=== PATIENT | female | born 1990 | race Caucasian/White ===

== ENCOUNTER 2019-03-20 19:39 | Emergency (ER) | payer OTHER, SELFPAY ==
[2019-03-20 19:42] VITALS: BP 127/74; PULSE 93; RESP 15; TEMP 37.2; O2SAT 100; BMI 23.1
--- NOTE | 2019-03-20 19:50 | CT_ITS ---
STUDY: CT ABDOMEN AND PELVIS WITH CONTRAST REASON FOR EXAM: Female, 28 years old. Pain. Nausea. RADIATION DOSAGE (If Supplied By Facility): CTDIvol = ( 9.70 ) mGy, DLP = ( 470.04 ) mGycm TECHNIQUE: Transaxial images were obtained from the dome of the diaphragm to the symphysis pubis without oral contrast. Oral and amp; IV Gastrografin and amp; 100mL Isovue-370 was administered. Sagittal and coronal images were reconstructed. Individualized dose optimization techniques were used for this CT. COMPARISON: None. FINDINGS: The visualized lung bases are unremarkable. The visualized portions of the heart are within normal limits. There is mild periportal edema, this may be secondary to recent intravenous rehydration. Normal gallbladder and extrahepatic biliary system. Normal spleen. Normal pancreas. Normal bilateral adrenal glands. Normal right kidney. Normal left kidney. Normal visualized stomach. Normal small intestine. There is circumferential wall thickening of the ascending and transverse colon. The appendix is visualized and appears normal. Normal abdominal aorta. Normal inferior vena cava. Normal retroperitoneum. Normal urinary bladder. There is trace fluid within the pelvis. Normal abdominal wall. Normal osseous structures. CT/Abdomen/Pelvis WITH Contrast IMPRESSION: Circumferential wall thickening of the ascending and transverse colon consistent with underlying colitis, etiologies include inflammatory, infectious or ischemic. Electronically Signed: Yohana Bueno MD at 22:05 EST Tel , Service support ,
--- NOTE | 2019-03-20 19:52 | ED.DCSUM_ITS ---
History of Present Illness Chief Complaint: Abd Pain Informant: Patient Onset: Days Context: Gradual Onset Timing: Intermittent Current Severity: Moderate Maximum Severity: Moderate Narrative: The patient is an otherwise healthy 28-year-old female with no significant medical history who presents to the emergency department with abdominal cramping, diarrhea, and fever. The patient states her symptoms began on Tuesday. She states he had some cramping upper abdominal pain and felt nauseated. She had one episode of emesis. She states that she took a Zofran and it seemed to improve. She states the next day, she was feeling okay but then throughout the night began to have loose, watery diarrhea and spiked a fever. She states today, she is still having persistent symptoms. She has no history of inflammatory bowel disease. She has no history of prior abdominal surgery. She denies any recent travel. Prior similar symptoms: No Recent Illness/Hospitalization: No Past Medical History - Allergies and Home Meds Allergies/Adverse Reactions: Allergies No Known Allergies Allergy (Verified 03/20/19 19:41) Primary Care Physician: NOT,DEFINED [NON-STAFF] - Prior records reviewed: Yes Past Medical History: None Surgical History: no surgical history Smoking Status: Never smoker Review of Systems General: Reports: Fever. Denies: Chills, Sweats Eyes: Denies: Visual changes - bilaterally, Diplopia ENT: Denies: Rhinorrhea, Sore throat Cardiovascular: Denies: Chest pain, Palpitations Respiratory: Denies: Dyspnea, Cough, Dyspnea on exertion Gastrointestinal: Reports: Abdominal pain, Nausea, Diarrhea. Denies: Vomiting, Melena, Hematochezia Genitourinary: Denies: Dysuria, Hematuria, Frequency Musculoskeletal: Denies: Back pain, Extremity Pain Skin: Denies: Rash, Wounds Neurological: Denies: Headache, Weakness, Numbness Physical Exam Vital Signs/Narrative: Vital Signs Temp Pulse Resp BP Pulse Ox 03/20/19 19:42 98.9 F 93 15 127/74 H 100 Inital Vital Signs reviewed: Yes General: Well nourished, Well developed, No Acute Distress Head: Normocephalic, Atraumatic Eyes: Perrl, EOMI ENT: Moist mucous membranes, No rhinorrhea Neck: Supple, Nontender Cardiovascular: Regular rate, Regular rhythm, No murmurs Respiratory: No distress, CTA bilaterally, Chest nontender Abdomen: Soft, Nondistended, Normal bowel sounds, Tender. Negative for: Guarding, Rebound tenderness Back: Nontender, Normal Inspection Extremities: Nontender, No edema Skin: Normal color, No rash Neurological: Alert, Oriented x3, Cranial nerves II-XII grossly intact, Normal Strength, Normal Sensation Psychological: Normal affect, Normal Mood Diagnostic/Tx/Re-eval Clinical Impression(s) from Imaging Studies Abdomen/Pelvis CT 03/20/19 19:50 IMPRESSION: Circumferential wall thickening of the ascending and transverse colon consistent with underlying colitis, etiologies include inflammatory, infectious or ischemic. Electronically Signed: Yohana Bueno MD at 22:05 EST Tel , Service support , Abnormal Lab Results 03/20/19 03/20/19 20:03 20:03 WBC 6.1 RBC 3.86 L Hgb 12.2 Hct 35.0 L MCV 90.7 MCH 31.6 MCHC 34.9 RDW Std Deviation 38.6 RDW Coeff of Lashawn 11.7 Plt Count 184 MPV 10.1 Immature Gran % (Auto) 0.200 Neut % (Auto) 72.2 H Lymph % (Auto) 19.0 [place] % (Auto) 7.5 Eos % (Auto) 0.8 Baso % (Auto) 0.3 Absolute Neuts (auto) 4.4 Absolute Lymphs (auto) 1.16 Nucleated RBC % 0 Sodium 137 Potassium 3.0 L Chloride 105 Carbon Dioxide 26.0 Anion Gap 6 BUN 11 Creatinine 1.05 H Estim Creat Clear Calc 75.34 Est GFR (MDRD) Af Amer 81 Est GFR (MDRD) Non-Af 67 BUN/Creatinine Ratio 10.5 Glucose 104 Calcium 9.0 Total Bilirubin 0.30 AST 19 ALT 17 Alkaline Phosphatase 50 Total Protein 8.2 Albumin 4.0 Globulin 4.2 Albumin/Globulin Ratio 1.0 Lipase 111 - Medical Decision Making The patient events with abdominal cramping, diarrhea, and fever. She does have some tenderness across the upper abdomen but no rebound or guarding. She is not tachycardic. She is afebrile here. Metabolic work-up was pursued. Patient has no significant leukocytosis. Electrolytes were unremarkable. Patient underwent CT imaging which shows colitis of the transverse and ascending colon. My suspicion is that this is likely of infectious origin. I do feel that the safest plan would be to cover the patient with Cipro and Flagyl. She also be given Bentyl to help with her cramping. She has no significant pain. She looks well. She is tolerating p.o. without issue. I do feel that she is safe for outpatient follow-up. He was counseled on concerning symptoms and reasons to return. She will be discharged home. Impression 1. Acute colitis ED Disposition - Plan for ED Patient: Instructions: DIARRHEA, Bacterial (7y-Adult) Prescriptions: Dicyclomine HCl [Bentyl] 20 mg PO TIDAC #20 cap Prescription Printed Ciprofloxacin [Cipro] 500 mg PO BID #14 tab Prescription Printed metroNIDAZOLE [Flagyl] 500 mg PO Q8H #21 tab Prescription Printed Referrals: NOT,DEFINED [NON-STAFF] -
[2019-03-20] MEDS: Ketorolac 30 MG/ML Syringe IV (20:00)
[2019-03-20] MEDS: Ondansetron 4 MG/2 ML Vial IV (20:00)
[2019-03-20] MEDS: 0.9% Normal Saline 1,000 ML 1000 ML IV (20:00)
[2019-03-20 20:15] LABS: Absolute Lymphocyte Count 1.16 X10^3/uL (0.83-4.51); Absolute Neutrophil Count 4.4 X10^3/uL (2.0-7.7); Basophil# 0.02 X10^3/uL; Basophil% 0.3 % (0-1); Eosinophil# 0.05 X10^3/uL; Eosinophils% 0.8 % (0-5); Hemoglobin 12.2 g/dL (12.0-15.0); Lymphocyte # 1.16 X10^3/ul (4.0); Mean Corp Hgb Conc 34.9 g/dL (32-36); Mean Corpuscular Hgb 31.6 pg (27.0-32.0); Mean Corpuscular Volume 90.7 fL (81-99); Mean Platelet Vol. 10.1 fl (6.2-12.0); Monocyte# 0.46 X10^3/uL; Monocyte% 7.5 % (0-10); NRBC Flagged by Analyzer 0 % (0-5); Neutrophil % 72.2 % (47-70); Platelet Count 184 K/mm3 (150-450); RBC Distribution Width CV 11.7 % (11.6-14.6); RBC Distribution Width SD 38.6 fl (35.1-43.9); Red Blood Count 3.86 M/mm3 (4.2-5.4); White Blood Count 6.1 K/mm3 (4.4-11.0)
[2019-03-20 20:47] LABS: AST(SGOT) 19 U/L (15-37); Alanine Aminotransfer ALT/SGPT 17 U/L (13-56); Alkaline Phosphatase 50 U/L (45-117); Anion Gap 6 (5-15); BUN 11 mg/dL (7-18); BUN/Creat Ratio 10.5 RATIO (10-20); Chloride 105 mmol/L (98-107); Creatinine, Serum 1.05 mg/dL (0.55-1.02); EST Glomerular Filtration Rate 67 mL/min (>60); Est Glom Filt Rate - Afr Amer 81 mL/min (>60); Estimated Creatinine Clearance 75.34 ml/min; Globulin 4.2 g/dL (2.2-4.2); Glucose 104 mg/dL (74-106); Lipase 111 U/L (73-393); Protein, Total 8.2 g/dL (6.4-8.2); Sodium Level 137 mmol/L (136-145)
[2019-03-20 22:09] VITALS: BP 113/77; PULSE 72; RESP 15; O2SAT 98
[2019-03-20] MEDS: Dicyclomine 10 MG Capsule 20 MG PO (22:19)
[2019-03-20] MEDS: metroNIDAZOLE 500 MG Tablet PO (22:19)
[2019-03-20] MEDS: Ciprofloxacin 500 MG Tablet PO (22:19)
[2019-03-20 22:21] LABS: Bacteria 0 SEEN /hpf (None Seen); Mucous, Urine 0 SEEN /hpf (<or=2+); Red Blood Cells-Urine 0 SEEN /hpf (0-5); Squamous Epithelial Cells - UA 0 SEEN /hpf (5-10); White Blood Cells 0 SEEN /hpf (0-5)
[2019-03-20 22:23] LABS: Color, Urine Yellow (Yellow); Glucose, Dipstick Normal (Normal); Ketone-Dipstick Negative (Negative); Leukocyte Esterase-Dipstick Negative /ul (Negative); Nitrite-Dipstick Negative (Negative); Occult Blood-Urine Negative /ul (Negative); Protein-Dipstick Negative (Negative); Urine Bilirubin Dipstick Negative (Negative); Urine Clarity Clear (Clear); Urine Urobilinogen Normal (Normal)
[2019-03-20 22:33] LABS: Internal QC Validated? YES +Cl - CLEAR BKGD; Pregnancy, Urine Negative Negative
== END 2019-03-20 22:31 | disposition home or self-care (01) ==
PROVIDERS: Emergency Provider Emergency Medicine
DX: K52.9 Noninfective gastroenteritis and colitis, unspecified (principal); Z79.899 Other long term (current) drug therapy
CPT/HCPCS: 74177; 80053; 81001; 81025; 83690; 85025; 96361; 96374; 96375; 99284; J7030; Q9967; A4216; J2405